=== PATIENT | male | born 1970 | race Caucasian/White ===

== ENCOUNTER 2020-06-18 10:53 | Emergency (ER) | payer OTHER ==
[2020-06-18 11:43] LABS: BASOPHIL 0.3 % (0-2); EOSINOPHIL 2.8 % (0-5); HCT 44.7 % (42.0-52.0); HGB 15.1 g/dl (13.2-18.0); LYMPHOCYTE 34.2 % (15-48); MCH 30.5 pg (25.0-31.0); MCHC 33.8 g/dL (32.0-36.0); MCV 90.3 fL (78.0-100.0); MONOCYTE 8.2 % (0-12); MPV 10.1 fL (6.0-9.5); NEUTROPHIL 53.4 % (41-80); NRBC 0; PLT 247 K/uL (150-400); RBC 4.95 M/uL (4.70-6.00); RDW 12.1 % (11.5-14.0); WBC 7.1 K/uL (4.0-10.5)
[2020-06-18 11:52] LABS: BILIRUBIN NEGATIVE (NEGATIVE); BLOOD NEGATIVE Ery/uL (NEGATIVE); CLARITY CLEAR (CLEAR); COLOR YELLOW (YELLOW); GLUCOSE (U) NORMAL (NORMAL); LEUKOCYTES NEGATIVE Leu/uL (NEGATIVE); NITRITE NEGATIVE (NEGATIVE); PROTEIN NEGATIVE (NEGATIVE); SPECIFIC GRAVITY >=1.030 (1.001-1.030); UROBILINOGEN 0.2 mg/dL (0.2-1.0); pH 5.5 (5.0-9.0)
[2020-06-18 13:26] LABS: CREATININE 0.89 mg/dL (0.67-1.17)
[2020-06-18 13:27] LABS: ALBUMIN 4.4 g/dL (3.4-5.0); BILIRUBIN - TOTAL 0.3 mg/dL (0.2-1.0); POTASSIUM 3.9 mmol/L (3.5-5.1); TOTAL PROTEIN 7.4 g/dL (6.4-8.2)
[2020-06-18 14:38] LABS: SQUAMOUS EPITHELIAL CELLS RARE
[2020-06-18] MEDS ORDERED: CYCLOBENZAPRINE10 MG PO (16:41)
[2020-06-18] MEDS ORDERED: ETODOLAC500 MG PO (16:41)
== END 2020-06-18 17:00 | disposition home or self-care (01) ==
LOC: FER 10:53
PROVIDERS: Emergency Medicine
DX: R10.9 Unspecified abdominal pain (principal); M54.9 Dorsalgia, unspecified; Z88.2 Allergy status to sulfonamides
CPT/HCPCS: 36415; 80053; 81001; 83690; 85025; J1170; J1885; J7030; Q9967